=== PATIENT | male | born 1945 | race Caucasian/White ===

== ENCOUNTER 2017-03-25 11:47 | Inpatient (IN) | payer MEDICARE, OTHER ==
--- NOTE | 2017-03-25 13:23 | EDM.PDOC ---
ED HPI GENERAL MEDICAL PROBLEM - General Chief Complaint: General Stated Complaint: FELL Time Seen by Provider: 03/25/17 12:57 Source of Information: Reports: Patient, Family, RN Notes Reviewed History Limitations: Reports: Physical Impairment - History of Present Illness INITIAL COMMENTS - FREE TEXT/NARRATIVE: 71-year-old gentleman presents to the emergency department today with complaint of increased falling he has fallen multiple times over the last 3 days he also has difficulty with urination as he is incontinent with urine also known history of dementia difficult to obtain any history from him the majority this was taken from chart review and his family members - Related Data Allergies Allergy/AdvReac Type Severity Reaction Status Date / Time losartan [Losartan] AdvReac Confusion Verified 03/08/15 11:19 Home Meds: Home Meds Folic Acid 1 tab PO DAILY 01/18/15 [History] Multivitamin with Minerals [Multiple Vitamin] 1 tab PO DAILY 01/18/15 [History] Cholecalciferol (Vitamin D3) [Vitamin D-3] 10,000 unit PO DAILY 03/04/15 [ History] Citalopram Hydrobromide [Celexa] 20 mg PO DAILY 03/04/15 [History] Cyanocobalamin (Vitamin B-12) [B-12] 250 mcg PO DAILY 03/04/15 [History] Omeprazole 20 mg PO BIDAC 03/04/15 [History] Thiamine [Vitamin B-1] 100 mg PO DAILY 03/04/15 [History] Lactobacillus Acidophilus [Probiotic] 1 tab PO BID 03/08/15 [History] Potassium Chloride [Klor-Con M20] 20 meq PO DAILY 03/08/15 [History] Past Medical History HEENT History: Reports: Hard of Hearing, Impaired Vision, Sinusitis Cardiovascular History: Reports: Hypertension Respiratory History: Reports: Other (See Below) Other Respiratory History: hx of pneumonia Gastrointestinal History: Reports: Chronic Diarrhea, Pancreatitis Genitourinary History: Reports: Prostate Disorder Psychiatric History: Reports: Dementia 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 - Past Surgical History Male Surgical History: Reports: Other (See Below) Neurological Surgical History: Reports: Other (See Below) Social & Family History - Tobacco Use Smoking Status *Q: Former Smoker Years of Tobacco use: 50 Packs/Tins Daily: 1 Used Tobacco, but Quit: Yes Month Tobacco Last Used: unknown Second Hand Smoke Exposure: No - Alcohol Use Days Per Week of Alcohol Use: 7 Number of Drinks Per Day: 1 Total Drinks Per Week: 7 - Recreational Drug Use Recreational Drug Use: No ED ROS GENERAL - Review of Systems Review Of Systems: Unable To Obtain ED EXAM, GENERAL - Physical Exam Exam: See Below Exam Limited By: Physical Impairment General Appearance: Alert, No Apparent Distress Eye Exam: Bilateral Eye: Normal Inspection Ears: Normal External Exam, Normal Canal, Hearing Grossly Normal, Normal TMs Nose: Normal Inspection, Normal Mucosa, No Blood Throat/Mouth: Normal Inspection, Normal Lips, Normal Gums, Normal Oropharynx, Normal Voice, No Airway Compromise, Other (Tobacco and dentures present) Head: Atraumatic, Normocephalic Neck: Normal Inspection, Supple, Non-Tender, Full Range of Motion Respiratory/Chest: No Respiratory Distress, Lungs Clear, No Accessory Muscle Use , Rhonchi, Wheezing Cardiovascular: Regular Rate, Rhythm, No Murmur GI/Abdominal: Soft, Non-Tender (Male) Exam: No Hernia, Other (Rash encompassing groin and scrotum). No: Testicular Tenderness (L), Testicular Tenderness (R) Extremities: Normal Inspection, Non-Tender, No Pedal Edema Skin Exam: Erythema, Increased Warmth Course - Vital Signs Last Recorded V/S: Last Vital Signs Temp 96.9 F 03/25/17 12:45 Pulse 59 L 03/25/17 13:47 Resp 20 03/25/17 13:47 BP 160/103 H 03/25/17 13:47 Pulse Ox 96 03/25/17 13:47 - Orders/Labs/Meds Orders: Active Orders 24 hr Category Date Time Status Chest 2V [CR] Urgent Exams 03/25/17 13:18 Taken CULTURE URINE [RM] Urgent Lab 03/25/17 15:24 Ordered Labs: Laboratory Tests 03/25/17 03/25/17 03/25/17 Range/Units 13:51 13:51 13:51 WBC 10.0 (4.5-11.0) K/uL RBC 4.39 (4.30-5.90) M/uL Hgb 12.9 (12.0-15.0) g/dL Hct 36.9 L (40.0-54.0) % MCV 84 (80-98) fL MCH 29 (27-31) pg MCHC 35 (32-36) % Plt Count 190 (150-400) K/uL Neut % (Auto) 75 H (36-66) % Lymph % (Auto) 10 L (24-44) % [place] % (Auto) 15 H (2-6) % Eos % (Auto) 1 L (2-4) % Baso % (Auto) 0 (0-1) % Sodium 123 L (140-148) mmol/L Potassium 3.7 (3.6-5.2) mmol/L Chloride 83 L (100-108) mmol/L Carbon Dioxide 24 (21-32) mmol/L Anion Gap 19.7 H (5.0-14.0) mmol/L BUN 9 D (7-18) mg/dL Creatinine 0.7 L (0.8-1.3) mg/dL Est Cr Clr Drug Dosing 102.84 mL/min Estimated GFR (MDRD) > 60 (>60) Glucose 118 H (74-106) mg/dL Lactic Acid 2.1 H (0.4-2.0) mmol/L Calcium 9.2 (8.5-10.1) mg/dL Total Bilirubin 1.1 H D (0.2-1.0) mg/dL AST 75 H (15-37) U/L ALT 25 (12-78) U/L Alkaline Phosphatase 73 (46-116) U/L Total Protein 7.0 (6.4-8.2) g/dL Albumin 3.8 (3.4-5.0) g/dL Globulin 3.2 (2.3-3.5) g/dL Albumin/Globulin Ratio 1.2 (1.2-2.2) Urine Color Urine Appearance Urine pH (4.5-8.0) Ur Specific [place] (1.008-1.030) Urine Protein (NEGATIVE) mg/dL Urine Glucose (UA) (NEGATIVE) mg/dL Urine Ketones (NEGATIVE) mg/dL Urine Occult Blood (NEGATIVE) Urine Nitrite (NEGAITVE) Urine Bilirubin (NEGATIVE) Urine Urobilinogen (NORMAL) mg/dL Ur Leukocyte Esterase (NEGATIVE) Urine RBC (0-5) Urine WBC (0-5) Ur Epithelial Cells Amorphous Sediment Urine Bacteria Urine Mucus 03/25/17 Range/Units 14:50 WBC (4.5-11.0) K/uL RBC (4.30-5.90) M/uL Hgb (12.0-15.0) g/dL Hct (40.0-54.0) % MCV (80-98) fL MCH (27-31) pg MCHC (32-36) % Plt Count (150-400) K/uL Neut % (Auto) (36-66) % Lymph % (Auto) (24-44) % [place] % (Auto) (2-6) % Eos % (Auto) (2-4) % Baso % (Auto) (0-1) % Sodium (140-148) mmol/L Potassium (3.6-5.2) mmol/L Chloride (100-108) mmol/L Carbon Dioxide (21-32) mmol/L Anion Gap (5.0-14.0) mmol/L BUN (7-18) mg/dL Creatinine (0.8-1.3) mg/dL Est Cr Clr Drug Dosing mL/min Estimated GFR (MDRD) (>60) Glucose (74-106) mg/dL Lactic Acid (0.4-2.0) mmol/L Calcium (8.5-10.1) mg/dL Total Bilirubin (0.2-1.0) mg/dL AST (15-37) U/L ALT (12-78) U/L Alkaline Phosphatase (46-116) U/L Total Protein (6.4-8.2) g/dL Albumin (3.4-5.0) g/dL Globulin (2.3-3.5) g/dL Albumin/Globulin Ratio (1.2-2.2) Urine Color Yellow Urine Appearance Cloudy Urine pH 6.0 (4.5-8.0) Ur Specific [place] 1.015 (1.008-1.030) Urine Protein Negative (NEGATIVE) mg/dL Urine Glucose (UA) Normal (NEGATIVE) mg/dL Urine Ketones 50 H (NEGATIVE) mg/dL Urine Occult Blood Moderate (NEGATIVE) Urine Nitrite Negative (NEGAITVE) Urine Bilirubin Negative (NEGATIVE) Urine Urobilinogen 4 (NORMAL) mg/dL Ur Leukocyte Esterase Moderate (NEGATIVE) Urine RBC 0-5 (0-5) Urine WBC 20-30 H (0-5) Ur Epithelial Cells Few Amorphous Sediment Few Urine Bacteria Few Urine Mucus Rare Departure - Departure Time of Disposition: 15:26 Disposition: Admitted As Inpatient 68 Condition: Fair Clinical Impression: UTI, Urinary tract infectious disease - Discharge Information Referrals: PCP,None [Primary Care Provider] - Forms: ED Department Discharge - My Orders Last 24 Hours: My Active Orders 03/25/17 13:18 Chest 2V [CR] Urgent 03/25/17 15:24 CULTURE URINE [RM] Urgent - Assessment/Plan Last 24 Hours: My Active Orders 03/25/17 13:18 Chest 2V [CR] Urgent 03/25/17 15:24 CULTURE URINE [RM] Urgent Plan: Assessment Acuity = acute Site and laterality = urinary tract infection and weakness Etiology = probable bacterial cause Manifestations = frequent falls Location of injury = Home Lab values = CBC within normal limits sodium low at 123 consistent hyponatremia AST elevated at 75 consists with elevated liver enzymes urinalysis reveals 20- 30 WBCs consistent with a pyuria chest x-ray I did review films myself I cannot appreciate any acute process, the official read from radiology is pending Plan Called and discussed case with hospitalist entry level installation technician he agreed, and evaluate the patient emergency department for admission This note was dictated using Heartbeat voice recognition software please call with any questions on syntax or birdie.
--- NOTE | 2017-03-25 16:51 | PCM.HP ---
H&P History of Present Illness - General Date of Service: 03/25/17 Admit Problem/Dx: Admission Diagnosis/Problem Admission Diagnosis/Problem Urinary tract infection Source of Information: Family, Old Records, Provider, RN Notes Reviewed History Limitations: Reports: Altered Mental Status (Dementia) - History of Present Illness Initial Comments - Free Text/Narative: This patient is a 71-year-old gentleman who is admitted through the emergency department with weakness, recent falls, secondary to urinary tract infection. He has known underlying Parkinson's disease as well as dementia. Symptoms of developed over the past 3-4 days and needs had at least 3 falls during that period of time. On evaluation in the emergency department is noted to have urinary tract infection and evidence of dehydration with slight elevation in lactic acid level and hyponatremia. Patient has significant dementia and is unable to provide information concerning recent symptoms. - Related Data Allergies/Adverse Reactions: Allergies Allergy/AdvReac Type Severity Reaction Status Date / Time losartan [Losartan] AdvReac Confusion Verified 03/08/15 11:19 Home Medications: Home Meds Folic Acid 800 mg PO DAILY 01/18/15 [History] Cholecalciferol (Vitamin D3) [Vitamin D-3] 10,000 unit PO DAILY 03/04/15 [ History] Citalopram Hydrobromide [Celexa] 20 mg PO DAILY 03/04/15 [History] Cyanocobalamin (Vitamin B-12) [B-12] 250 mcg PO DAILY 03/04/15 [History] Omeprazole 20 mg PO BIDAC 03/04/15 [History] Thiamine [Vitamin B-1] 200 mg PO DAILY 03/04/15 [History] Lactobacillus Acidophilus [Probiotic] 1 tab PO BID 03/08/15 [History] Potassium Chloride [Klor-Con M20] 20 meq PO DAILY 03/08/15 [History] Carbidopa/Levodopa [Carbidopa-Levodopa 25-100 Tab] 1 tab PO TID 03/25/17 [ History] Carvedilol [Carvedilol] 1 tab PO BIDMEALS 03/25/17 [History] Lisinopril [Lisinopril] 1 tab PO DAILY 03/25/17 [History] atorvaSTATin Calcium [Atorvastatin Calcium] 1 tab PO TID 03/25/17 [History] Past Medical History HEENT History: Reports: Hard of Hearing, Impaired Vision, Sinusitis Cardiovascular History: Reports: Hypertension Respiratory History: Reports: Other (See Below) Other Respiratory History: hx of pneumonia Gastrointestinal History: Reports: Chronic Diarrhea, Pancreatitis Genitourinary History: Reports: Prostate Disorder Psychiatric History: Reports: Dementia 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 - Past Surgical History Male Surgical History: Reports: Other (See Below) Neurological Surgical History: Reports: Other (See Below) Social & Family History - Tobacco Use Smoking Status *Q: Former Smoker Years of Tobacco use: 50 Packs/Tins Daily: 1 Used Tobacco, but Quit: Yes Month Tobacco Last Used: unknown Second Hand Smoke Exposure: No - Alcohol Use Days Per Week of Alcohol Use: 7 Number of Drinks Per Day: 1 Total Drinks Per Week: 7 - Recreational Drug Use Recreational Drug Use: No H&P Review of Systems - Review of Systems: Review Of Systems: Unable To Obtain General: Reports: ROS unobtainable (Dementia) Exam - Exam Exam: See Below - Vital Signs Vital Signs: Last Vital Signs Temp 96.9 F 03/25/17 12:45 Pulse 59 L 03/25/17 13:47 Resp 20 03/25/17 13:47 BP 160/103 H 03/25/17 13:47 Pulse Ox 96 03/25/17 13:47 Weight: 182 lb 8.684 oz - Exam Quality Assessment: DVT Prophylaxis General: Alert, Cooperative, Mild Distress HEENT: Conjunctiva Clear, Hearing Intact, Nares Patent, Normal Nasal Septum, Posterior Pharynx Clear, Pupils Equal. No: Mucosa Moist & [place] Neck: Supple, Trachea Midline, +2 Carotid Pulse wo Bruit Lungs: Decreased Breath Sounds, Rhonchi, Wheezing. No: Crackles, Rales Cardiovascular: Regular Rate, Regular Rhythm, Normal S1, Normal S2. No: Systolic Murmur, Diastolic Murmur GI/Abdominal Exam: Soft, Non-Tender, No Organomegaly, No Distention Back Exam: Normal Inspection, Full Range of Motion Extremities: Non-Tender, No Pedal Edema Skin: Warm, Dry, Rash (Groin, consistent with yeast infection) Neurological: Cranial Nerves Intact, Strength Equal Bilateral, Normal Speech, Normal Tone, Sensation Intact. No: Focal Deficit Neuro Extensive - Mental Status: Alert, Disorientation to Place, Disorientation to Time, Memory Loss-Remote Events, Memory Loss-Recent Events. No: Normal Cognition, Memory Intact - Patient Data Lab Results Last 24 hrs: Laboratory Results - last 24 hr 03/25/17 03/25/17 03/25/17 Range/Units 13:51 13:51 13:51 WBC 10.0 (4.5-11.0) K/uL RBC 4.39 (4.30-5.90) M/uL Hgb 12.9 (12.0-15.0) g/dL Hct 36.9 L (40.0-54.0) % MCV 84 (80-98) fL MCH 29 (27-31) pg MCHC 35 (32-36) % Plt Count 190 (150-400) K/uL Neut % (Auto) 75 H (36-66) % Lymph % (Auto) 10 L (24-44) % [place] % (Auto) 15 H (2-6) % Eos % (Auto) 1 L (2-4) % Baso % (Auto) 0 (0-1) % Sodium 123 L (140-148) mmol/L Potassium 3.7 (3.6-5.2) mmol/L Chloride 83 L (100-108) mmol/L Carbon Dioxide 24 (21-32) mmol/L Anion Gap 19.7 H (5.0-14.0) mmol/L BUN 9 D (7-18) mg/dL Creatinine 0.7 L (0.8-1.3) mg/dL Est Cr Clr Drug Dosing 102.84 mL/min Estimated GFR (MDRD) > 60 (>60) Glucose 118 H (74-106) mg/dL Lactic Acid 2.1 H (0.4-2.0) mmol/L Calcium 9.2 (8.5-10.1) mg/dL Total Bilirubin 1.1 H D (0.2-1.0) mg/dL AST 75 H (15-37) U/L ALT 25 (12-78) U/L Alkaline Phosphatase 73 (46-116) U/L Total Protein 7.0 (6.4-8.2) g/dL Albumin 3.8 (3.4-5.0) g/dL Globulin 3.2 (2.3-3.5) g/dL Albumin/Globulin Ratio 1.2 (1.2-2.2) Urine Color Urine Appearance Urine pH (4.5-8.0) Ur Specific [place] (1.008-1.030) Urine Protein (NEGATIVE) mg/dL Urine Glucose (UA) (NEGATIVE) mg/dL Urine Ketones (NEGATIVE) mg/dL Urine Occult Blood (NEGATIVE) Urine Nitrite (NEGAITVE) Urine Bilirubin (NEGATIVE) Urine Urobilinogen (NORMAL) mg/dL Ur Leukocyte Esterase (NEGATIVE) Urine RBC (0-5) Urine WBC (0-5) Ur Epithelial Cells Amorphous Sediment Urine Bacteria Urine Mucus 03/25/17 Range/Units 14:50 WBC (4.5-11.0) K/uL RBC (4.30-5.90) M/uL Hgb (12.0-15.0) g/dL Hct (40.0-54.0) % MCV (80-98) fL MCH (27-31) pg MCHC (32-36) % Plt Count (150-400) K/uL Neut % (Auto) (36-66) % Lymph % (Auto) (24-44) % [place] % (Auto) (2-6) % Eos % (Auto) (2-4) % Baso % (Auto) (0-1) % Sodium (140-148) mmol/L Potassium (3.6-5.2) mmol/L Chloride (100-108) mmol/L Carbon Dioxide (21-32) mmol/L Anion Gap (5.0-14.0) mmol/L BUN (7-18) mg/dL Creatinine (0.8-1.3) mg/dL Est Cr Clr Drug Dosing mL/min Estimated GFR (MDRD) (>60) Glucose (74-106) mg/dL Lactic Acid (0.4-2.0) mmol/L Calcium (8.5-10.1) mg/dL Total Bilirubin (0.2-1.0) mg/dL AST (15-37) U/L ALT (12-78) U/L Alkaline Phosphatase (46-116) U/L Total Protein (6.4-8.2) g/dL Albumin (3.4-5.0) g/dL Globulin (2.3-3.5) g/dL Albumin/Globulin Ratio (1.2-2.2) Urine Color Yellow Urine Appearance Cloudy Urine pH 6.0 (4.5-8.0) Ur Specific [place] 1.015 (1.008-1.030) Urine Protein Negative (NEGATIVE) mg/dL Urine Glucose (UA) Normal (NEGATIVE) mg/dL Urine Ketones 50 H (NEGATIVE) mg/dL Urine Occult Blood Moderate (NEGATIVE) Urine Nitrite Negative (NEGAITVE) Urine Bilirubin Negative (NEGATIVE) Urine Urobilinogen 4 (NORMAL) mg/dL Ur Leukocyte Esterase Moderate (NEGATIVE) Urine RBC 0-5 (0-5) Urine WBC 20-30 H (0-5) Ur Epithelial Cells Few Amorphous Sediment Few Urine Bacteria Few Urine Mucus Rare Result Diagrams: 03/25/17 13:51 03/25/17 13:51 *Q Meaningful Use (ADM) - VTE *Q VTE Criteria *Q: - VTE Risk Assess *Q Each Risk Factor Represents 1 Point: Obesity ( BMI > 25 kg/m2) Total Score 1 Point Risk Factors: 1 Each Risk Factor Represents 2 Points: Age 60 - 74 Years Total Score 2 Point Risk Factors: 2 Each Risk Factor Represents 3 Points: None Total Score 3 Point Risk Factors: 0 Each Risk Factor Represents 5 Points: None Total Score 5 Point Risk Factors: 0 Venous Thromboembolism Risk Factor Score *Q: 3 - Stroke *Q Stroke Criteria *Q: - AMI *Q AMI Criteria *Q: Problem List Initiated/Reviewed/Updated: Yes Orders Last 24hrs: Active Orders 24 hr Category Date Time Status Patient Status Manage Transfer [TRANSFER] Routine ADT 03/25/17 16:21 Ordered Chest 2V [CR] Urgent Exams 03/25/17 13:18 Taken CULTURE URINE [RM] Urgent Lab 03/25/17 15:30 Received Resuscitation Status Routine Resus Stat 03/25/17 16:24 Ordered Assessment/Plan Comment:: ASSESSMENT AND PLAN WEAKNESS AND DEHYDRATION-likely secondary to underlying urinary tract infection and viral upper respiratory tract infection. Slight elevation in lactic acid level likely secondary to dehydration. No other evidence of underlying sepsis. -IV fluids for hydration -Management of UTI and respiratory tract infection URINARY TRACT INFECTION -Urine culture pending -Rocephin 1 g IV every 24 hours VIRAL UPPER RESPIRATORY TRACT INFECTION-mild to moderate respiratory compromise , with rhonchi and bilateral expiratory wheezes, no hypoxia. -IV fluids for hydration -Supplemental oxygen if needed -Nebulized albuterol and duo nebs -Solu-Medrol 40 mg IV every 8 hours DEMENTIA-very mild agitation noted in the emergency department -Melatonin 9 mg by mouth daily at bedtime -Haldol 1 mg IV every 2 hours when necessary -Consider Depakote 250 mg by mouth twice a day if he becomes more agitated HYPONATREMIA-likely secondary to dehydration -IV normal saline -Reassess sodium level in a.m. PARKINSON'S DISEASE -Continue outpatient management MAINTENANCE ISSUES -DVT prophylaxis; Lovenox 40 mg subcutaneous daily -GI prophylaxis; continue outpatient PPI therapy -Harmon catheter; not indicated -Nutrition; regular diet -Nicotine dependence; not required CODE STATUS-DNR/DNI ADMISSION STATUS-patient will be admitted to inpatient status, expect at least a 2 night hospital stay for evaluation and management of problems as outlined above. At the time of this admission I do not reasonably expected evaluation and management of this problem will require more than a 96 hour hospital stay. DISPOSITION-anticipate discharge to home after the hospital stay. PRIMARY CARE PROVIDER-Jaxon Peters
[2017-03-25] MEDS ORDERED: Sodium Chloride 0.9% 10 ML Syringe FLUSH PRN (17:45)
[2017-03-25] MEDS ORDERED: Ondansetron 4 MG/2 ML SDV IV PRN (17:45)
[2017-03-25] MEDS ORDERED: Haloperidol Lactate 5 MG/ML SDV IVPUSH PRN (17:45)
[2017-03-25] MEDS ORDERED: Albuterol 0.083% 2.5 MG/3 ML Neb Soln NEB PRN (17:45)
[2017-03-25] MEDS ORDERED: Acetaminophen 325 MG Tab PO PRN (17:45)
[2017-03-25] MEDS ORDERED: oxyCODONE 5 MG Tab PO PRN (17:45)
[2017-03-25] MEDS: methylPREDNISolone Sodium Succinate 40 MG/1 ML SDV IVPUSH SCH (18:59)
[2017-03-25] MEDS ORDERED: cefTRIAXone 1 GM in Sodium Chloride 0.9% 50 ML IV SCH (19:00)
[2017-03-25] MEDS: Albuterol/Ipratropium 3.0-0.5 MG/3 ML Neb Soln NEB SCH (21:11)
[2017-03-25] MEDS: Enoxaparin 40 MG/0.4 ML Syringe SUBCUT SCH (21:11)
[2017-03-25] MEDS: Melatonin 3 MG Tab PO SCH (21:11)
[2017-03-25] MEDS: Nystatin Topical Powder 15 GM Bottle TOP SCH (21:12)
[2017-03-25] MEDS: Pantoprazole 40 MG Tab.CR PO SCH (21:12)
[2017-03-25] MEDS: Lactobacillus Rhamnosus GG (Probiotic) Cap PO SCH (21:12)
[2017-03-25] MEDS ORDERED: Sodium Chloride 0.9% 1,000 ML IV SCH (21:15)
[2017-03-26] MEDS ORDERED: Sodium Chloride 0.9% 1,000 ML IV SCH ×2 (01:14→09:45)
[2017-03-26] MEDS: methylPREDNISolone Sodium Succinate 40 MG/1 ML SDV IVPUSH SCH ×2 (03:47→09:28)
[2017-03-26] MEDS: Albuterol/Ipratropium 3.0-0.5 MG/3 ML Neb Soln NEB SCH ×4 (05:31→21:25)
[2017-03-26] MEDS: Nystatin Topical Powder 15 GM Bottle TOP SCH ×4 (07:36→21:30)
[2017-03-26] MEDS: Pantoprazole 40 MG Tab.CR PO SCH ×2 (08:40→16:18)
[2017-03-26] MEDS: Citalopram 20 MG Tab PO SCH (09:25)
[2017-03-26] MEDS: Potassium Chloride 20 MEQ Tab.ER PO SCH (09:26)
[2017-03-26] MEDS: Lactobacillus Rhamnosus GG (Probiotic) Cap PO SCH ×2 (09:26→21:24)
--- NOTE | 2017-03-26 09:37 | PCM.PN ---
- General Info Date of Service: 03/26/17 Functional Status: Reports: Pain Controlled, Tolerating Diet - Review of Systems General: Denies: Fever Pulmonary: Reports: Shortness of Breath Systems Review Comment:: No acute events overnight. No significant issues with confusion. No supplemental oxygen requirement at this time. Urine culture is pending. Tolerating current antibiotics. He has not had any fevers. - Patient Data Vitals - Most Recent: Last Vital Signs Temp 36.3 C 03/26/17 06:55 Pulse 78 03/26/17 06:55 Resp 18 03/26/17 06:55 BP 154/77 H 03/26/17 07:39 Pulse Ox 96 03/26/17 06:55 Weight - Most Recent: 81.7 kg I&O - Last 24 Hours: Intake & Output 03/25/17 03/26/17 03/26/17 22:59 06:59 14:59 Intake Total 50 1718 Output Total 100 250 Balance -50 1468 Lab Results Last 24 Hours: Laboratory Results - last 24 hr 03/26/17 03/26/17 Range/Units 05:55 05:55 WBC 5.1 (4.5-11.0) K/uL RBC 4.41 (4.30-5.90) M/uL Hgb 13.0 (12.0-15.0) g/dL Hct 37.4 L (40.0-54.0) % MCV 85 (80-98) fL MCH 30 (27-31) pg MCHC 35 (32-36) % Plt Count 212 (150-400) K/uL Neut % (Auto) 75 H (36-66) % Lymph % (Auto) 11 L (24-44) % [place] % (Auto) 14 H (2-6) % Eos % (Auto) 0 L (2-4) % Baso % (Auto) 0 (0-1) % Sodium 131 L (140-148) mmol/L Potassium 3.7 (3.6-5.2) mmol/L Chloride 89 L (100-108) mmol/L Carbon Dioxide 26 (21-32) mmol/L Anion Gap 19.7 H (5.0-14.0) mmol/L BUN 6 L (7-18) mg/dL Creatinine 0.7 L (0.8-1.3) mg/dL Est Cr Clr Drug Dosing 102.84 mL/min Estimated GFR (MDRD) > 60 (>60) Glucose 148 H (74-106) mg/dL Calcium 9.0 (8.5-10.1) mg/dL Magnesium 1.5 L (1.8-2.4) mg/dL Jonathan Results Last 24 Hours: Microbiology 03/25/17 18:53 Influenza Type A Antigen Screen - Final Nasopharyngeal Swab - Nare, Unspecified Positive Influenza A Ag Influenza Type B Antigen Screen - Final NEGATIVE INFLUENZA B VIRUS AG Med Orders - Current: Current Medications Acetaminophen (Tylenol) 650 mg PO Q4H PRN PRN Reason: Pain (Mild 1-3)/fever Albuterol (Proventil Neb Soln) 2.5 mg NEB Q4H PRN PRN Reason: Shortness Of Breath/wheezing Albuterol/Ipratropium (Duoneb 3.0-0.5 Mg/3 Ml) 3 ml NEB QIDRT [facility] Citalopram Hydrobromide (Celexa) 20 mg PO DAILY [facility] Last Admin: 03/26/17 09:25 Dose: 20 mg Enoxaparin Sodium (Lovenox) 40 mg SUBCUT BEDTIME [facility] Last Admin: 03/25/17 21:11 Dose: 40 mg Haloperidol Lactate (Haldol) 1 mg IVPUSH Q2H PRN PRN Reason: Agitation Ceftriaxone Sodium 1 gm/ (Sodium Chloride) 50 mls @ 100 mls/hr IV Q24H [facility] Magnesium Sulfate 2 gm/ Premix 50 mls @ 25 mls/hr IV Q6H [facility] Stop: 03/26/17 23:59 Lactobacillus Rhamnosus (Culturelle) 1 cap PO BID [facility] Last Admin: 03/26/17 09:26 Dose: 1 cap Melatonin (Melatonin) 9 mg PO BEDTIME [facility] Last Admin: 03/25/17 21:11 Dose: 9 mg Nystatin (Nystop) 0 gm TOP QID [facility] Last Admin: 03/26/17 09:26 Dose: 1 applic Ondansetron HCl (Zofran) 4 mg IV Q4H PRN PRN Reason: Nausea/Vomiting Oxycodone HCl (Oxycodone) 5 mg PO Q4H PRN PRN Reason: Pain (moderate 4-6) Pantoprazole Sodium (Protonix) 40 mg PO BIDAC [facility] Last Admin: 03/26/17 08:40 Dose: 40 mg Potassium Chloride (Klor-Con M20) 20 meq PO DAILY@0800 [facility] Last Admin: 03/26/17 09:26 Dose: 20 meq Sodium Chloride (Saline Flush) 10 ml FLUSH ASDIRECTED PRN PRN Reason: Keep Vein Open Discontinued Medications Albuterol/Ipratropium (Duoneb 3.0-0.5 Mg/3 Ml) 3 ml NEB QID [facility] Last Admin: 03/26/17 05:31 Dose: 3 ml Ceftriaxone Sodium 1 gm/ (Sodium Chloride) 50 mls @ 100 mls/hr IV Q24H [facility] Last Admin: 03/25/17 19:07 Dose: 100 mls/hr Sodium Chloride (Normal Saline) 1,000 mls @ 250 mls/hr IV ASDIRECTED [facility] Stop: 03/26/17 01:14 Last Admin: 03/25/17 21:18 Dose: 250 mls/hr Sodium Chloride (Normal Saline) 1,000 mls @ 125 mls/hr IV ASDIRECTED [facility] Last Admin: 03/26/17 01:21 Dose: 125 mls/hr Methylprednisolone Sodium Succinate (Solu-Medrol) 40 mg IVPUSH Q8H [facility] Last Admin: 03/26/17 09:28 Dose: 40 mg Nystatin (Nystop) 0 gm TOP QID [facility] Last Admin: 03/26/17 07:36 Dose: Not Given - Exam Quality Assessment: No: Supplemental Oxygen General: Alert, Cooperative, No Acute Distress Lungs: Normal Respiratory Effort, Wheezing (mild mid to end exp wheezing diffusely ) Cardiovascular: Regular Rate, Regular Rhythm Extremities: No Pedal Edema Psy/Mental Status: Alert, Normal Affect - Problem List Review Problem List Initiated/Reviewed/Updated: Yes - My Orders Last 24 Hours: My Active Orders 03/26/17 09:45 Sodium Chloride 0.9% [Normal Saline] 1,000 ml IV ASDIRECTED 03/26/17 10:00 Magnesium Sulfate/Water [Magnesium Sulfate 2 GM in Water 50 ML] 2 gm Premix Bag 1 bag IV Q6H 03/26/17 16:30 predniSONE 20 mg PO BIDAC 03/27/17 05:00 BASIC METABOLIC PANEL,BMP [CHEM] Timed CBC W/O DIFF,HEMOGRAM [HEME] Timed (1) - Plan Plan:: ASSESSMENT AND PLAN WEAKNESS AND DEHYDRATION - likely secondary to underlying urinary tract infection and viral upper respiratory tract infection. Improving with IV fluid supplementation. -Gentle IV fluids for hydration -Management of UTI and respiratory tract infection URINARY TRACT INFECTION - no fevers. Tolerating current antibiotics. -Urine culture pending -Rocephin 1 g IV every 24 hours VIRAL UPPER RESPIRATORY TRACT INFECTION - minimal respiratory issues at this time with clear lungs and no supplemental oxygen requirement. -Gentle IV fluids for hydration -Supplemental oxygen if needed -Nebulized albuterol and duo nebs -Transition steroids to prednisone DEMENTIA - very mild agitation noted in the emergency department -Melatonin 9 mg by mouth daily at bedtime -Haldol 1 mg IV every 2 hours when necessary -Consider Depakote 250 mg by mouth twice a day if he becomes more agitated HYPONATREMIA - likely secondary to dehydration, improved significantly with hydration -IV normal saline -Reassess sodium level in a.m. PARKINSON'S DISEASE -Continue outpatient management MAINTENANCE ISSUES -DVT prophylaxis; Lovenox 40 mg subcutaneous daily -GI prophylaxis; continue outpatient PPI therapy -Harmon catheter; not indicated -Nutrition; regular diet DISPOSITION - anticipate discharge to home after the hospital stay, hopefully one or 2 days Tawanda Herron M.D.
--- NOTE | 2017-03-26 09:44 | CR ---
Chest 2V FINDINGS: The heart and vascular structures are normal in appearance. No infiltrates or effusions are demonstrated. The skeletal structures are unremarkable. IMPRESSION: Negative exam.
[2017-03-26] MEDS: Magnesium Sulfate/Water 2 GM in Premix Bag 1 BAG IV SCH ×3 (11:05→21:24)
[2017-03-26] MEDS: predniSONE 20 MG Tab PO SCH (16:18)
[2017-03-26] MEDS ORDERED: cefTRIAXone 1 GM in Sodium Chloride 0.9% 50 ML IV SCH (18:00)
[2017-03-26] MEDS: Enoxaparin 40 MG/0.4 ML Syringe SUBCUT SCH (21:25)
[2017-03-26] MEDS: Melatonin 3 MG Tab PO SCH (21:28)
--- NOTE | 2017-03-26 23:47 | PCM.SN ---
- Free Text/Narrative Note: TIME: 23:[address] [facility]; O: Mr. Wills's IV access has failed, requesting to keep out over night A: IV access P: will keep IV/Saline Lock discontinued. will re-assess in am.
[2017-03-27] MEDS ORDERED: Potassium Chloride 20 MEQ Tab.ER PO ONE (05:08)
[2017-03-27] MEDS: Nystatin Topical Powder 15 GM Bottle TOP SCH (05:46)
[2017-03-27] MEDS: Albuterol/Ipratropium 3.0-0.5 MG/3 ML Neb Soln NEB SCH ×2 (07:31→10:41)
[2017-03-27] MEDS: Pantoprazole 40 MG Tab.CR PO SCH (08:31)
[2017-03-27] MEDS: predniSONE 20 MG Tab PO SCH (08:31)
[2017-03-27] MEDS: Lactobacillus Rhamnosus GG (Probiotic) Cap PO SCH (08:32)
[2017-03-27] MEDS: Potassium Chloride 20 MEQ Tab.ER PO SCH (08:32)
[2017-03-27] MEDS: Citalopram 20 MG Tab PO SCH (08:32)
--- NOTE | 2017-03-27 10:32 | PCM.DCSUM1 ---
Discharge Summary - Hospital Course Brief History: 71-year-old male with dementia who presented with weakness and cough. He was admitted for management of influenza infection and possible urinary tract infection. - Discharge Data Discharge Date: 03/27/17 Discharge Disposition: Home, W Home Health Agency 06 Condition: Good - Discharge Diagnosis/Problem(s) (1) Influenza A SNOMED Code(s): 998552212 ICD Code: J10.1 - FLU DUE TO OTH IDENT INFLUENZA VIRUS W OTH RESP MANIFEST Status: Acute Current Visit: Yes (2) UTI, Urinary tract infectious disease SNOMED Code(s): 26205819 ICD Code: N39.0 - URINARY TRACT INFECTION, SITE NOT SPECIFIED Status: Ruled -out Current Visit: Yes (3) Dementia SNOMED Code(s): 34329980 ICD Code: F03.90 - UNSPECIFIED DEMENTIA WITHOUT BEHAVIORAL DISTURBANCE Status: Chronic Current Visit: No Qualifiers: Dementia type: unspecified type Dementia behavioral disturbance: without behavioral disturbance Qualified Code(s): F03.90 - Unspecified dementia without behavioral disturbance - Patient Summary/Data Hospital Course: Sawyer presented to the emergency room with weakness and several falls at home. He also had upper respiratory symptoms at the time of presentation. Workup in the emergency room was possibly suggestive of a urinary tract infection and his influenza antigen was also positive. For the possible infection he was started on ceftriaxone and a urine culture was set up. With the duration of his symptoms starting 3-4 days prior to presentation Tamiflu was not initiated because felt that it would not provide benefit this far into the disease. Initially he had wheezing and rhonchi on examination but was not hypoxic. He was started on steroids, initially through the IV but these for later transition to oral steroids. He did show slow but steady improvement during the hospital stay. He has never required supplemental oxygen. Respiratory examination has been improving steadily with only rare expiratory wheezes remaining. He has been up and moving around his room with only standby assist. His urine culture did end up growing only mixed positive yaya with no specific bacterial culprit identified. He has tolerated his diet well. There've been no significant issues with agitation. At this point I believe he is safe for outpatient management. He will be discharged home with his . He will need 3 additional doses of prednisone. He can follow-up as needed if symptoms do not continue to get better or if they get worse. - Patient Instructions Diet: Regular Diet as Tolerated Activity: As Tolerated Showering/Bathing: May Shower Notify Provider of: Fever, Increased Pain, Nausea and/or Vomiting Other/Special Instructions: 1. You were in the hospital for management of acute influenza a infection. Your symptoms started more than 2 days prior to diagnosis so Tamiflu was not started because of lack of benefit at that point. We did start prednisone to help with the inflammation caused by the viral infection. I do recommend 3 additional doses of prednisone taken with breakfast and supper. Your next dose will be due at [facility]. Initially there was some concern for a bladder infection but the culture did not grow a specific bacteria and no more antibiotics are needed. 2. Continue your home medications as previously prescribed. 3. I have placed a referral to home health care services to help ease your transition home from the hospital stay. 4. Please seek medical attention if you develop fever greater than 101, have sudden onset of shortness of breath or difficulty breathing or if you have recurrence of weakness and falling. - Discharge Plan Prescriptions/Med Rec: Prednisone [IJD: predniSONE] 20 mg PO BIDAC #3 tablet Home Medications: Home Meds Folic Acid 800 mg PO DAILY 01/18/15 [History] Cholecalciferol (Vitamin D3) [Vitamin D3] 10,000 unit PO DAILY 03/04/15 [History ] Citalopram Hydrobromide [Celexa] 20 mg PO DAILY 03/04/15 [History] Cyanocobalamin (Vitamin B-12) [B-12] 250 mcg PO DAILY 03/04/15 [History] Omeprazole 20 mg PO BIDAC 03/04/15 [History] Thiamine [Vitamin B-1] 200 mg PO DAILY 03/04/15 [History] Lactobacillus Acidophilus [Probiotic] 1 tab PO BID 03/08/15 [History] Potassium Chloride [Klor-Con M20] 20 meq PO DAILY 03/08/15 [History] Carbidopa/Levodopa [Carbidopa-Levodopa 25-100 Tab] 1 tab PO TID 03/25/17 [ History] Carvedilol 1 tab PO BIDMEALS 03/25/17 [History] Lisinopril 1 tab PO DAILY 03/25/17 [History] atorvaSTATin Calcium [Atorvastatin Calcium] 1 tab PO TID 03/25/17 [History] Prednisone [IJD: predniSONE] 20 mg PO BIDAC #3 tablet 03/27/17 [Rx] Patient Handouts: Influenza, Adult, Prednisone tablets Referrals: PCP,None [Primary Care Provider] - (f/u with your primary care doctor if symptoms worsen or do not continue to get better) - Discharge Summary/Plan Comment DC Time >30 min.: No (25) - Patient Data Vitals - Most Recent: Last Vital Signs Temp 36.2 C 03/27/17 07:00 Pulse 79 03/27/17 07:00 Resp 18 03/27/17 07:00 BP 138/66 03/27/17 07:00 Pulse Ox 96 03/27/17 07:00 Weight - Most Recent: 81.7 kg I&O - Last 24 hours: Intake & Output 03/26/17 03/27/17 03/27/17 22:59 06:59 14:59 Intake Total 1506 60 480 Output Total 300 Balance 1206 60 480 Lab Results - Last 24 hrs: Laboratory Results - last 24 hr 03/27/17 03/27/17 03/27/17 Range/Units 04:28 04:28 06:28 WBC 11.0 (4.5-11.0) K/uL RBC 3.94 L (4.30-5.90) M/uL Hgb 11.5 L (12.0-15.0) g/dL Hct 33.4 L (40.0-54.0) % MCV 85 (80-98) fL MCH 29 (27-31) pg MCHC 34 (32-36) % Plt Count 194 (150-400) K/uL Sodium 133 L (140-148) mmol/L Potassium 2.8 L* (3.6-5.2) mmol/L Chloride 95 L (100-108) mmol/L Carbon Dioxide 27 (21-32) mmol/L Anion Gap 13.8 (5.0-14.0) mmol/L BUN 5 L (7-18) mg/dL Creatinine 0.5 L (0.8-1.3) mg/dL Est Cr Clr Drug Dosing 144.33 mL/min Estimated GFR (MDRD) > 60 (>60) Glucose 150 H (74-106) mg/dL Calcium 8.5 (8.5-10.1) mg/dL Magnesium 2.2 (1.8-2.4) mg/dL Med Orders - Current: Current Medications Acetaminophen (Tylenol) 650 mg PO Q4H PRN PRN Reason: Pain (Mild 1-3)/fever Albuterol (Proventil Neb Soln) 2.5 mg NEB Q4H PRN PRN Reason: Shortness Of Breath/wheezing Albuterol/Ipratropium (Duoneb 3.0-0.5 Mg/3 Ml) 3 ml NEB QIDRT [facility] Last Admin: 03/27/17 07:31 Dose: 3 ml Citalopram Hydrobromide (Celexa) 20 mg PO DAILY [facility] Last Admin: 03/27/17 08:32 Dose: 20 mg Enoxaparin Sodium (Lovenox) 40 mg SUBCUT BEDTIME [facility] Last Admin: 03/26/17 21:25 Dose: 40 mg Haloperidol Lactate (Haldol) 1 mg IVPUSH Q2H PRN PRN Reason: Agitation Sodium Chloride (Normal Saline) 1,000 mls @ 75 mls/hr IV ASDIRECTED [facility] Last Admin: 03/26/17 16:25 Dose: 75 mls/hr Lactobacillus Rhamnosus (Culturelle) 1 cap PO BID [facility] Last Admin: 03/27/17 08:32 Dose: 1 cap Melatonin (Melatonin) 9 mg PO BEDTIME [facility] Last Admin: 03/26/17 21:28 Dose: 9 mg Nystatin (Nystop) 0 gm TOP QID [facility] Last Admin: 03/27/17 05:46 Dose: 1 applic Ondansetron HCl (Zofran) 4 mg IV Q4H PRN PRN Reason: Nausea/Vomiting Oxycodone HCl (Oxycodone) 5 mg PO Q4H PRN PRN Reason: Pain (moderate 4-6) Pantoprazole Sodium (Protonix) 40 mg PO BIDAC [facility] Last Admin: 03/27/17 08:31 Dose: 40 mg Potassium Chloride (Klor-Con M20) 20 meq PO DAILY@0800 [facility] Last Admin: 03/27/17 08:32 Dose: 20 meq Prednisone (Prednisone) 20 mg PO BIDAC [facility] Last Admin: 03/27/17 08:31 Dose: 20 mg Sodium Chloride (Saline Flush) 10 ml FLUSH ASDIRECTED PRN PRN Reason: Keep Vein Open Discontinued Medications Albuterol/Ipratropium (Duoneb 3.0-0.5 Mg/3 Ml) 3 ml NEB QID [facility] Last Admin: 03/26/17 05:31 Dose: 3 ml Ceftriaxone Sodium 1 gm/ (Sodium Chloride) 50 mls @ 100 mls/hr IV Q24H [facility] Last Admin: 03/25/17 19:07 Dose: 100 mls/hr Sodium Chloride (Normal Saline) 1,000 mls @ 250 mls/hr IV ASDIRECTED [facility] Stop: 03/26/17 01:14 Last Admin: 03/25/17 21:18 Dose: 250 mls/hr Sodium Chloride (Normal Saline) 1,000 mls @ 125 mls/hr IV ASDIRECTED [facility] Last Infusion: 03/26/17 09:38 Dose: Infused Ceftriaxone Sodium 1 gm/ (Sodium Chloride) 50 mls @ 100 mls/hr IV Q24H [facility] Last Admin: 03/26/17 17:42 Dose: 100 mls/hr Magnesium Sulfate 2 gm/ Premix 50 mls @ 25 mls/hr IV Q6H [facility] Stop: 03/26/17 23:59 Last Admin: 03/26/17 21:24 Dose: 25 mls/hr Methylprednisolone Sodium Succinate (Solu-Medrol) 40 mg IVPUSH Q8H [facility] Last Admin: 03/26/17 09:28 Dose: 40 mg Nystatin (Nystop) 0 gm TOP QID [facility] Last Admin: 03/26/17 07:36 Dose: Not Given Potassium Chloride (Klor-Con M20) 40 meq PO ONETIME ONE Stop: 03/27/17 05:09 Last Admin: 03/27/17 05:46 Dose: 40 meq - Exam Quality Assessment: Denies: Supplemental Oxygen General: Reports: Alert, Cooperative, No Acute Distress. Denies: Oriented Lungs: Reports: Normal Respiratory Effort, Wheezing (Rare mid and expiratory wheezing diffusely) Cardiovascular: Reports: Regular Rate, Regular Rhythm Extremities: No Pedal Edema Psy/Mental Status: Reports: Alert, Normal Affect *Q Meaningful Use (DIS) - VTE *Q VTE Criteria *Q: - Stroke *Q Stroke Criteria *Q: - AMI *Q AMI Criteria *Q:
[2017-03-27 11:11] VITALS: BP 134/76
== END 2017-03-27 12:46 | disposition home health service (06) | DRG 194 ==
LOC: JP.ED 11:47 → JP.MS 16:21
PROVIDERS: ADMIT Hospitalist; ATTEND Hospitalist
DX: J10.1 Influenza due to other identified influenza virus with other respiratory manifestations (principal); N39.0 Urinary tract infection, site not specified; E87.1 Hypo-osmolality and hyponatremia; F03.90 Unspecified dementia, unspecified severity, without behavioral disturbance, psychotic disturbance, mood disturbance, and anxiety; G20 Parkinson's disease; I10 Essential (primary) hypertension; F02.80 Dementia in other diseases classified elsewhere, unspecified severity, without behavioral disturbance, psychotic disturbance, mood disturbance, and anxiety; R32 Unspecified urinary incontinence; Z66 Do not resuscitate; R29.6 Repeated falls; Z87.891 Personal history of nicotine dependence; E86.0 Dehydration; R53.1 Weakness; E87.6 Hypokalemia; H54.7 Unspecified visual loss; H91.90 Unspecified hearing loss, unspecified ear; Z88.8 Allergy status to other drugs, medicaments and biological substances; Z79.52 Long term (current) use of systemic steroids
CPT/HCPCS: 36415; 71046; 71046-26; 80048; 80053; 81001; 83605; 83735; 85025; 85027; 87086; 87804; 94640; 99284; 99285; A9270-GY; J0696; J1650; J2920; J3475; J7030; J7050; J7620